=== PATIENT | female | born 1960 | race Caucasian/White ===

== ENCOUNTER → 2018-04-16 | Outpatient (CLI) | payer BC | END | disposition home or self-care (01) | LOC: LAB SHORT 13:54 → PLD 13:54 | DX: L81.4 Other melanin hyperpigmentation (principal) | CPT/HCPCS: 88305 ==

== ENCOUNTER → 2019-02-21 | Outpatient (CLI) | payer BC ==
[2019-02-21 12:43] LABS: BASOPHILS ABSOLUTE AUTO 0.04 K/mm3 (0.00-0.23); BASOPHILS PERCENT AUTO 0 % (0-2); EOSINOPHILS ABSOLUTE AUTO 0.09 K/mm3 (0.00-0.68); EOSINOPHILS PERCENT AUTO 1 % (0-6); Hematocrit 42.2 % (33.0-51.0); Hemoglobin 14.2 g/dL (11.5-16.0); IMMATURE GRAN ABSOLUTE AUTO 0.03 K/mm3 (0.00-0.10); IMMATURE GRAN PERCENT AUTO 0 % (0-1); LYMPHOCYTES ABSOLUTE AUTO 2.59 K/mm3 (0.84-5.20); LYMPHOCYTES PERCENT AUTO 28 % (21-46); MONOCYTES ABSOLUTE AUTO 0.72 K/mm3 (0.16-1.47); MONOCYTES PERCENT AUTO 8 % (4-13); Mean Corpuscular HGB 30.9 pg (26.0-34.0); Mean Corpuscular HGB Conc 33.6 g/dL (31.5-36.5); Mean Corpuscular Volume 92 fL (80-100); Mean Platelet Volume 9.6 fL (9.1-12.4); NEUTROPHILS ABSOLUTE AUTO 5.96 K/mm3 (1.96-9.15); NEUTROPHILS PERCENT AUTO 63 % (41-73); Platelet Count 241 K/mm3 (150-400); RDW Coefficient Variation 13.2 % (11.7-14.2); RDW Standard Deviation 44.8 fL (35.1-46.3); White Blood Cell Count 9.43 K/mm3 (4.00-11.30)
[2019-02-21 12:57] LABS: Alanine Aminotransfer (ALT/SGP 357 U/L (12-78); Albumin, Blood 3.9 g/dL (3.4-5.0); Alk Phos 110 U/L (50-136); Anion Gap 6 mmol/L (6-16); Aspartate Aminotrans (AST/SGOT 251 U/L (12-37); Bilirubin, Total 0.7 mg/dL (0.1-1.0); Blood Urea Nitrogen 17 mg/dL (8-24); Bun/Creatinine Ratio 21.5 (12.0-20.0); CO2, Blood 29 mmol/L (21-32); Calcium, Blood 9.2 mg/dL (8.5-10.1); Chloride, Blood 105 mmol/L (98-108); Creatinine, Blood 0.79 mg/dL (0.40-1.00); Globulin, Blood 3.9 g/dL (2.2-4.0); Glomerular Filtration Rate >60 (60-); Glucose, Blood 91 mg/dL (70-99); Potassium, Blood 3.4 mmol/L (3.5-5.5); Sodium, Blood 140 mmol/L (136-145); Total Protein, Blood 7.8 g/dL (6.4-8.2)
== END | disposition home or self-care (01) ==
LOC: LAB 12:26 → LAB SHORT 12:26
PROVIDERS: Nurse Practitioner
DX: R10.9 Unspecified abdominal pain (principal)
CPT/HCPCS: 80053; 83690; 85025

== ENCOUNTER → 2020-07-17 | Outpatient (CLI) | payer BC, OTHER ==
[2020-07-17 10:55] LABS: BASOPHILS ABSOLUTE AUTO 0.04 K/mm3 (0.00-0.23); BASOPHILS PERCENT AUTO 0 % (0-2); EOSINOPHILS ABSOLUTE AUTO 0.09 K/mm3 (0.00-0.68); EOSINOPHILS PERCENT AUTO 1 % (0-6); Hematocrit 42.2 % (33.0-51.0); Hemoglobin 13.7 g/dL (11.5-16.0); IMMATURE GRAN ABSOLUTE AUTO 0.04 K/mm3 (0.00-0.10); IMMATURE GRAN PERCENT AUTO 0 % (0-1); LYMPHOCYTES ABSOLUTE AUTO 2.34 K/mm3 (0.84-5.20); LYMPHOCYTES PERCENT AUTO 18 % (21-46); MONOCYTES ABSOLUTE AUTO 0.95 K/mm3 (0.16-1.47); MONOCYTES PERCENT AUTO 7 % (4-13); Mean Corpuscular HGB Conc 32.5 g/dL (31.5-36.5); Mean Corpuscular Volume 93 fL (80-100); Mean Platelet Volume 9.4 fL (9.1-12.4); NEUTROPHILS ABSOLUTE AUTO 9.52 K/mm3 (1.96-9.15); NEUTROPHILS PERCENT AUTO 73 % (41-73); Platelet Count 250 K/mm3 (150-400); RDW Coefficient Variation 13.3 % (11.7-14.2); RDW Standard Deviation 45.4 fL (35.1-46.3); Red Blood Cell Count 4.56 M/mm3 (3.80-5.20); White Blood Cell Count 12.98 K/mm3 (4.00-11.30)
[2020-07-17 11:07] LABS: Alanine Aminotransfer (ALT/SGP 23 U/L (12-78); Albumin, Blood 3.8 g/dL (3.4-5.0); Alk Phos 81 U/L (50-136); Anion Gap 7 mmol/L (6-16); Aspartate Aminotrans (AST/SGOT 10 U/L (12-37); Bilirubin, Total 0.7 mg/dL (0.1-1.0); Blood Urea Nitrogen 11 mg/dL (8-24); CO2, Blood 28 mmol/L (21-32); Chloride, Blood 104 mmol/L (98-108); Creatinine, Blood 0.79 mg/dL (0.40-1.00); Globulin, Blood 3.8 g/dL (2.2-4.0); Glomerular Filtration Rate >60 (60-); Glucose, Blood 97 mg/dL (70-99); Potassium, Blood 3.6 mmol/L (3.5-5.5); Sodium, Blood 139 mmol/L (136-145); Total Protein, Blood 7.6 g/dL (6.4-8.2)
== END | disposition home or self-care (01) ==
LOC: LAB SHORT 10:45 → PLD 10:45
PROVIDERS: Nurse Practitioner Family
DX: K57.92 Diverticulitis of intestine, part unspecified, without perforation or abscess without bleeding (principal); R10.9 Unspecified abdominal pain
CPT/HCPCS: 80053; 83690; 85025

== ENCOUNTER → 2020-12-23 | Outpatient (CLI) | payer BC, OTHER ==
[2020-12-23 10:35] LABS: Source, Urine Clean Catch
[2020-12-23 10:58] LABS: Appearance, Urine Hazy (Clear); Bacteria Rare /hpf; Bilirubin, Urine Neg (Neg); Blood, Urine 1+ (Neg); Color, Urine Yellow (P-Yellow); Glucose Qualitative, Urine Neg (Normal); Ketones, Urine Neg (Neg); Leukocyte Esterase, Urine Trace (Neg); Nitrite, Urine Neg (Neg); Protein, Urine Neg (Neg); Red Blood Cells, Urine Rare /hpf (0-2); Specific Gravity, Urine 1.015 (1.003-1.022); Squamous Epithelial Cells Rare /hpf (Few); Urobilinogen, Urine NORM (Normal); White Blood Cells, Urine Rare /hpf (0-5)
== END | disposition home or self-care (01) ==
LOC: LAB SHORT 10:25
PROVIDERS: Internal Medicine
DX: R35.0 Frequency of micturition (principal)
CPT/HCPCS: 81001; 87086

== ENCOUNTER → 2023-03-29 | Outpatient (CLI) | payer BC | LOC: LAB 11:49 → LAB SHORT 11:49 | DX: N39.0 Urinary tract infection, site not specified (principal) | CPT/HCPCS: 87077; 87086; 87186 ==

== ENCOUNTER → 2023-04-17 | Outpatient (CLI) | payer BC | LOC: LAB 16:24 → LAB SHORT 16:24 | DX: R30.0 Dysuria (principal) | CPT/HCPCS: 87086 ==

== ENCOUNTER 2023-05-16 06:57 | Day surgery (SDC) | payer BC ==
[2023-05-16] VITALS (15 sets, daily range): BP systolic 108–158; BP diastolic 66–94
[~2023-05-16] VITALS: Ht 170 cm; Wt 92.6 kg
[~2023-05-16 06:57] MED LIST: ATOR10 PO; ELIQUIS5 M3 PO; METO25 PO; OMEP20ER PO; OZEMPIC2 MG/0.75 SC; Prinivil10 MG PO; VITAMIN D310 MC4 PO
[2023-05-16] MEDS ORDERED: MELATONIN5 M1 PO (07:59)
--- NOTE | 2023-05-16 08:55 | NUR ---
Ambulatory in Day Surgery. Surgical site prepped with 2% Chlorhexidine cloth wipe. History, Chart, Medications and Allergies reviewed before start of procedure. Lungs clear T/O to Auscultation. Patient confirms NPO status and agrees with scheduled surgery. Pre-Op teaching done. Pt verbalizes understanding. Patient reports completing Chlorhexadine shower X2 prior to admission to hospital.
--- NOTE | 2023-05-16 09:25 | NUR ---
05/16/23 0925 Maria Teresa Crawley NOTED TO Maeve PETERSEN.
--- NOTE | 2023-05-16 11:15 | NUR ---
ARRIVAL TO SURGICAL UNIT PLEASANT & ALERT. ASSESSMENT CHARTED. DENIES N/V. WATER & CRACKERS GIVEN.
--- NOTE | 2023-05-16 19:42 | NUR ---
SHIFT SUMMARY PT HAS DONE WELL TODAY. WORKED w/ THERAPY. EATING, DRINKING, & VOIDING.
[2023-05-17 00:55] VITALS: BP 146/84
[2023-05-17 02:58] VITALS: BP 150/86
[2023-05-17 04:42] LABS: BASOPHILS ABSOLUTE AUTO 0.02 K/mm3 (0.00-0.23); BASOPHILS PERCENT AUTO 0 % (0-2); EOSINOPHILS ABSOLUTE AUTO 0.06 K/mm3 (0.00-0.68); EOSINOPHILS PERCENT AUTO 1 % (0-6); Hematocrit 34.7 % (33.0-51.0); Hemoglobin 11.6 g/dL (11.5-16.0); IMMATURE GRAN ABSOLUTE AUTO 0.04 K/mm3 (0.00-0.10); IMMATURE GRAN PERCENT AUTO 0 % (0-1); LYMPHOCYTES ABSOLUTE AUTO 2.81 K/mm3 (0.84-5.20); LYMPHOCYTES PERCENT AUTO 22 % (21-46); MONOCYTES ABSOLUTE AUTO 1.12 K/mm3 (0.16-1.47); MONOCYTES PERCENT AUTO 9 % (4-13); Mean Corpuscular HGB 30.6 pg (26.0-34.0); Mean Corpuscular HGB Conc 33.4 g/dL (31.5-36.5); Mean Corpuscular Volume 92 fL (80-100); Mean Platelet Volume 9.4 fL (9.1-12.4); NEUTROPHILS ABSOLUTE AUTO 8.79 K/mm3 (1.96-9.15); NEUTROPHILS PERCENT AUTO 68 % (41-73); Platelet Count 213 K/mm3 (150-400); RDW Standard Deviation 42.7 fL (35.1-46.3); Red Blood Cell Count 3.79 M/mm3 (3.80-5.20); White Blood Cell Count 12.84 K/mm3 (4.00-11.30)
--- NOTE | 2023-05-17 06:43 | NUR ---
SHIFT SUMMARY POD 1 R TKA, AQUACEL C/D/I, POLAR PACK IN PLACE. PT UP TO BATHROOM SEVERAL TIMES T/O NIGHT, TOLERATED WELL. MEDICATED 2X THIS SHIFT FOR PAIN W/ 2MG PO DILAUDID. VSS, PT UP TO CHAIR AWAITING THERAPY. CALL LIGHT W/IN REACH. PLANS FOR DISCHARGE TO HOME TODAY.
[2023-05-17 06:50] LABS: Bun/Creatinine Ratio 14.4 (12.0-20.0); Calcium, Blood 8.8 mg/dL (8.5-10.1); Creatinine, Blood 0.83 mg/dL (0.40-1.00)
[2023-05-17 07:38] VITALS: BP 139/79
[2023-05-17] MEDS ORDERED: HYDMOR2 PO (09:02)
--- NOTE | 2023-05-17 10:00 | NUR ---
DISCHARGE RIDE HAS ARRIVED NOW. PT HAS CLEARED THERAPY. PAIN WELL CONTROLLED. EATING, DRINKING, & VOIDING WELL. DRSGS & POLAR PACK SENT w/ PT. (SCRIPT SENT YESTERDAY w/ SPOUSE). ESCORTED OUT VIA W/C.
[2023-05-17 14:05] LABS: Potassium, Blood 3.9 mmol/L (3.5-5.5)
== END 2023-05-17 09:57 | disposition home or self-care (01) ==
LOC: ORSCMMR 06:57 → ORD 08:15 → SURS 10:59 → ORSCMMR 05-17 09:57
PROVIDERS: Orthopaedic Surgery
PROC: 0SRC0JA Replacement of Right Knee Joint with Synthetic Substitute, Uncemented, Open Approach (ICD-10-PCS; principal; 2023-05-16 08:15)
DX: M17.11 Unilateral primary osteoarthritis, right knee (principal); I48.91 Unspecified atrial fibrillation; Z79.01 Long term (current) use of anticoagulants; I10 Essential (primary) hypertension; G47.33 Obstructive sleep apnea (adult) (pediatric); E03.9 Hypothyroidism, unspecified; K21.9 Gastro-esophageal reflux disease without esophagitis; Z79.899 Other long term (current) drug therapy
CPT/HCPCS: 36415; 73560-RT; 80048; 85025; 94660; 94762; 97110; 97116; 97161; 97530; A9270; C1776; J0171; J0690; J0735; J1100; J1885; J2250; J2405; J2704; J2765; J2795; J3010; J7120

== ENCOUNTER → 2023-05-29 | Outpatient (CLI) | payer BC ==
[~2023-05-29] MED LIST changes: +HYDMOR2 PO; +MELATONIN5 M1 PO
== END | disposition home or self-care (01) ==
LOC: LAB SHORT 10:15 → LAB 10:15
DX: R31.29 Other microscopic hematuria (principal); R30.0 Dysuria
CPT/HCPCS: 87077; 87086; 87186

== ENCOUNTER 2025-01-14 06:03 | Day surgery (SDC) | payer OTHER | END 2025-01-14 23:00 | LOC: CT 06:03 | DX: I48.0 Paroxysmal atrial fibrillation (principal); I47.10 Supraventricular tachycardia, unspecified; Z79.01 Long term (current) use of anticoagulants; E78.5 Hyperlipidemia, unspecified | CPT/HCPCS: 75571 ==

== ENCOUNTER 2025-02-25 09:35 | Day surgery (SDC) | payer BC ==
[~2025-02-25] VITALS: Ht 170.2 cm; Wt 93.1 kg
[~2025-02-25 09:35] MED LIST changes: +Balanced Salt Epinephrine Irrigation Solution 500 mL IR SCH; +Moxifloxacin HCL 0.5 MG/0.1 ML 0.4MLSYR RIGHTEYE SCH; +Ondansetron 4 MG SoluTab MM PRN; +PHENYLEPHRINE\\TROPICAMIDE\\TETRACAINE OPHTHALMIC DILATING SOLN RIGHTEYE PRN; +Povidone-Iodine 450 DROP/30 ML Solution ONE; +Povidone-Iodine 450 DROP/30 ML Solution RIGHTEYE SCH; +Tetracaine HCl/Pf 0.5% Opth Soln 4 ml ONE
[2025-02-25] MEDS ORDERED: EZET10 (10:03)
[2025-02-25] MEDS ORDERED: CLIMARA1 EACH TOP (10:03)
[2025-02-25] MEDS ORDERED: EZALLOR SPRINKL20 MG PO (10:04)
--- NOTE | 2025-02-25 10:08 | NUR ---
02/25/25 Lauren Raymond CALL LIGHT WITHIN REACH. PT ON CONTINOUSE PULSE OXIMETER.
--- NOTE | 2025-02-25 10:40 | NUR ---
02/25/25 1040 Kateryna Rizo 1038 BP 152/97, HR 76, O2 AT 98%, RESP 16
[2025-02-25 10:57] VITALS: BP 150/95
== END 2025-02-25 11:09 | disposition home or self-care (01) ==
LOC: ORSCSDS 09:35
PROVIDERS: Student in an Organized Health Care Education/Training Program
PROC: 08RJ3JZ Replacement of Right Lens with Synthetic Substitute, Percutaneous Approach (ICD-10-PCS; principal; 2025-02-25 11:00)
DX: H25.813 Combined forms of age-related cataract, bilateral (principal); H52.31 Anisometropia; H50.10 Unspecified exotropia; E05.00 Thyrotoxicosis with diffuse goiter without thyrotoxic crisis or storm; I48.91 Unspecified atrial fibrillation; K21.9 Gastro-esophageal reflux disease without esophagitis; I10 Essential (primary) hypertension; E78.5 Hyperlipidemia, unspecified; Z79.01 Long term (current) use of anticoagulants; G47.33 Obstructive sleep apnea (adult) (pediatric); Z79.899 Other long term (current) drug therapy
CPT/HCPCS: A9270; J2003; V2632

== ENCOUNTER 2025-03-04 08:28 | Day surgery (SDC) | payer BC ==
[~2025-03-04] VITALS: Ht 170.2 cm; Wt 93.7 kg
[~2025-03-04 08:28] MED LIST changes: +CLIMARA1 EACH TOP; +EZALLOR SPRINKL20 MG PO; +EZET10; +Moxifloxacin HCL 0.5 MG/0.1 ML 0.4MLSYR LEFTEYE SCH; -Moxifloxacin HCL 0.5 MG/0.1 ML 0.4MLSYR RIGHTEYE SCH; +PHENYLEPHRINE\\TROPICAMIDE\\TETRACAINE OPHTHALMIC DILATING SOLN LEFTEYE PRN; -PHENYLEPHRINE\\TROPICAMIDE\\TETRACAINE OPHTHALMIC DILATING SOLN RIGHTEYE PRN; +Povidone-Iodine 450 DROP/30 ML Solution LEFTEYE SCH; -Povidone-Iodine 450 DROP/30 ML Solution RIGHTEYE SCH
--- NOTE | 2025-03-04 09:10 | NUR ---
03/04/25 0910 Minoo Meyer 0904: INTIIAL ANXIETY 12/05 PER PATIENT REPORT 0909: 10 MG PO VALIUM GIVEN PER ORDERS. PULSE OXIMETER ON FINGER, CALL LIGHT IN HAND.
--- NOTE | 2025-03-04 09:56 | NUR ---
03/04/25 0956 Kateryna Rizo 0948 BP 160/90, HR 70, O2 AT 98%, RESP 16
[2025-03-04 10:06] VITALS: BP 156/99
--- NOTE | 2025-03-04 10:24 | NUR ---
03/04/25 [facility] Yuan Nance PT DENIES PAIN AND NAUSEA. PT AGREEABLE TO D/C HOME.
== END 2025-03-04 10:23 | disposition home or self-care (01) ==
LOC: ORSCSDS 08:28
PROVIDERS: Student in an Organized Health Care Education/Training Program
PROC: 08RK3JZ Replacement of Left Lens with Synthetic Substitute, Percutaneous Approach (ICD-10-PCS; principal; 2025-03-04 10:00)
DX: H25.812 Combined forms of age-related cataract, left eye (principal); Z96.1 Presence of intraocular lens; I48.91 Unspecified atrial fibrillation; K21.9 Gastro-esophageal reflux disease without esophagitis; I10 Essential (primary) hypertension; H52.31 Anisometropia; E78.5 Hyperlipidemia, unspecified; G47.33 Obstructive sleep apnea (adult) (pediatric); E05.00 Thyrotoxicosis with diffuse goiter without thyrotoxic crisis or storm; R00.0 Tachycardia, unspecified; Z79.899 Other long term (current) drug therapy
CPT/HCPCS: A9270; J2003; V2632